=== PATIENT | female | born 1935 | race Caucasian/White ===

== ENCOUNTER 2017-12-27 09:10 | Emergency (ER) | payer MEDICARE ==
[2017-12-27] MEDS: oxyCODONE/APAP 5/325 1 TAB TABLET PO (09:28)
[2017-12-27] MEDS: fentaNYL PF VIAL 100 MCG/2 ML VIAL IM (11:14)
== END 2017-12-27 11:45 | disposition home or self-care (01) ==
LOC: ER 09:10
DX: S83.91XA Sprain of unspecified site of right knee, initial encounter (principal); S99.922A Unspecified injury of left foot, initial encounter; E78.00 Pure hypercholesterolemia, unspecified; I10 Essential (primary) hypertension; E11.9 Type 2 diabetes mellitus without complications; W01.0XXA Fall on same level from slipping, tripping and stumbling without subsequent striking against object, initial encounter; Y93.89 Activity, other specified; Y99.8 Other external cause status; Y92.89 Other specified places as the place of occurrence of the external cause
CPT/HCPCS: 73502; 73562; 73630; 96372; 99284-25; J3010